=== PATIENT | female | born 1995 | race Caucasian/White ===

== ENCOUNTER 2023-07-01 06:05 | Emergency (ER) | payer BC, OTHER | END 2023-07-01 07:27 | disposition home or self-care (01) | LOC: JD.ED 06:05 | DX: S93.601A Unspecified sprain of right foot, initial encounter (principal); Z86.16 Personal history of COVID-19; X50.0XXA Overexertion from strenuous movement or load, initial encounter; Y92.000 Kitchen of unspecified non-institutional (private) residence as the place of occurrence of the external cause | CPT/HCPCS: 73630-26-RT; 73630-RT; 99283 ==